=== PATIENT | male | born 1955 | race Caucasian/White ===

== ENCOUNTER → 2016-08-21 | Outpatient (CLI) | payer OTHER ==
[~2016-08-21] MED LIST: ALLERGY INJECTIONS; AMMONIUM LACTATE; ANDROGEL1.25 GM TD; BENADRYL PO; BENTYL20 M1 PO; CALCIUM CARBONA1 TAB PO; CARDIZEM60 MG PO; CARVEDILOL25 MG PO; CIALIS PO; CLOTRIMAZOLE; CLOTRIMAZOLE15 GM; COREG PO; COREG12.5 MG PO; COUMADIN PO; COUMADIN2.5 MG PO; COUMADIN5 MG PO; COUMADIN7.5 MG PO; DITROPAN5 MG PO; DURAGESIC1 EAC1 TD; FENTANYL1 PATCH .1 TD; FISH OIL 1,0001 EAC1 PO; FLAGYL PO; FLEXERIL10 MG PO; FLONASE16 GM; GABAPENTIN600 MG PO; GABAPENTIN800 MG PO; GLUCOSAMINE CHO PO; GLUCOSAMINE PO; HYDROCODON-ACE1 EAC5 PO; HYZAAR 50-12.51 TA1 PO; HYZAAR 50-12.51 TAB PO; LAC-HYDRIN 5113 GM; LASIX PO; LODINE PO; LOVENOX SUBQ; LOVENOX100 MG/ML INJ; LOVENOX120 MG/0.8 INJ; MODAFINIL200 MG PO; MULTIPLE VITAMI1 T11 PO; NASACORT10.8 ML NS; NASALCORT; NEXIUM PO; NIASPAN PO; NIASPAN1000 MG PO; OMEGA 3 FISH OI1 CAP; OMEPRAZOLE20 M1 PO; PATIENT'S PHARMACY; PRILOSEC20 MG PO; PRILOSEC40 MG PO; ROCEPHIN IV; SIMVASTATIN40 MG PO; TEMAZEPAM PO; VANCOMYCIN IV; VYTORIN 10/80 T1 TAB PO; XANAX0.5 M1 PO; ZOFRAN PO; ZOLOFT50 MG PO; ZYRTEC10 M2 PO; [UNRECOGNIZED DRUG - OTHER] IM; [UNRECOGNIZED DRUG - OTHER] PO; [UNRECOGNIZED DRUG - SUPPLY] IM
--- NOTE | ~2016-08-21 | CT5 ---
[facility] A Service of [facility] RADIOLOGY TEXT RESULTS PATIENT: CARLOS MAJOR LOCATION: [facility] : 53 UNIT #: [id number] AGE: [address]: Dakota Hernandez MD SEX: M ORDER DR: [id number] [place] [id number] [facility]. [place], [place] [address] [id number] O MR#: [id number] [facility] #: [id number] NAME: CARLOS MAJOR : 1955 SEX: M STUDY DATE/TIME: 08/21/2016 10:21 UNIT: [facility] ROOM: STUDY DESCRIPTION: CT Abdomen W Cont Attending Physician: Dakota Hernandez M.D. Referring Physician: Dakota Hernandez M.D. Ordering Physician: Dakota Hernandez M.D. Primary Care Physician: Nik Rosario M.D. MEDICAL IMAGING REPORT This report is preliminary unless electronic signature is present INDICATIONS Malignant carcinoid tumor of the stomach. Restaging. Observation for metastatic disease. TECHNIQUE CT of the abdomen with oral and IV contrast (100 mL Isovue-370 IV contrast). Coronal and sagittal reconstructions were obtained. This CT exam was performed with one or more of the following radiation dose reduction techniques: automatic exposure control, adjustment of mA and/or kV according to patient size, and iterative reconstruction. COMPARISON Concurrent CT chest dated 08/21/[address] abdomen dated 11/29/2015. FINDINGS The liver is enlarged measuring 22.0-23.0 cm in length. This is unchanged. There is some mild stranding around the gallbladder fossa and periportal region, however no discretely enlarged lymph nodes are identified. There are a few subcentimeter lymph nodes in the gastrohepatic space ligament, however these are subcentimeter in size. A few periportal lymph nodes are also a subcentimeter in size. Pancreas is atrophic. The spleen and adrenal glands are unchanged. 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 The bowel is not dilated. No enlarged retroperitoneal lymph nodes. The appendix is borderline thickened at 0.7 cm, however there is no significant periappendiceal inflammation. There is a small lipoma in the left lateral aspect of the external oblique muscle. [facility] [place] A Service of [facility] RADIOLOGY TEXT RESULTS PATIENT: CARLOS MAJOR LOCATION: [facility] : 53 UNIT #: [id number] AGE: [address]: Dakota Hernandez MD SEX: M ORDER DR: No acute osseous abnormalities. IMPRESSION 1. No evidence of disease progression. 2. There are a few small periportal and gastrohepatic lymph nodes that are not pathologically enlarged, however, are more prominent than the prior study. I would recommend these be closely followed. 3. Stable hepatomegaly. Dictated by... Stuart Dee M.D. THIS IS AN ELECTRONICALLY VERIFIED REPORT Stuart Dee M.D. at 08/22/2016 2:04 PM OTYA/inder TD: 08/21/2016 18:08 JOB #: [id number] MEDICAL IMAGING REPORT COPY
--- NOTE | ~2016-08-21 | CT55 ---
[facility] A Service of [facility] RADIOLOGY TEXT RESULTS PATIENT: CARLOS MAJOR LOCATION: [facility] : 53 UNIT #: [id number] AGE: [address]: Dakota Hernandez MD SEX: M ORDER DR: [id number] [facility] [address] [place], [place] [address] [id number] O MR#: [id number] [facility] #: [id number] NAME: CARLOS MAJOR : 1955 SEX: M STUDY DATE/TIME: 08/21/2016 10:21 UNIT: [facility] ROOM: STUDY DESCRIPTION: CT Chest W Con Attending Physician: Dakota Hernandez M.D. Referring Physician: Dakota Hernandez M.D. Ordering Physician: Dakota Hernandez M.D. Primary Care Physician: Nik Rosario M.D. MEDICAL IMAGING REPORT This report is preliminary unless electronic signature is present INDICATION Malignant carcinoid tumor of the stomach. Restaging. Observation for metastatic disease. Generalized abdominal pain for [address] of the thorax utilizing 100 mL Isovue-370 IV contrast. Coronal and sagittal reconstructions were obtained. This CT exam was performed with one or more of the following radiation dose reduction techniques: automatic exposure control, adjustment of mA and/or kV according to patient size, and iterative reconstruction. COMPARISON Concurrent CT abdomen dated 08/21/[address] chest and abdomen dated 11/29/2015. FINDINGS There are no pathologically enlarged mediastinal or hilar lymph nodes. There are a few mediastinal lymph nodes that are slightly larger than on the prior study, however, remain subcentimeter in size. The mid ascending thoracic aorta is dilated measuring 4.8 cm, unchanged. There is no pericardial or pleural effusion. No new pulmonary opacities. There are a few small pulmonary nodules that are unchanged from the prior study of 11/29/2015. No new pulmonary opacities. Central airways are patent. Please refer to separately dictated report for details on the abdomen. No suspicious osseous abnormalities. IMPRESSION 1. No evidence of disease progression. 2. No pathologically enlarged mediastinal lymph nodes are identified, however there are a few small subcentimeter nodes that are slightly STS. [facility] A Service of [facility] & [facility] RADIOLOGY TEXT RESULTS PATIENT: CARLOS MAJOR LOCATION: [facility] : 53 UNIT #: [id number] AGE: [address]: Dakota Hernandez MD SEX: M ORDER DR: larger than on the prior study and these should be followed. 3. Small pulmonary nodules are unchanged from prior study. Dictated by... Stuart Dee M.D. THIS IS AN ELECTRONICALLY VERIFIED REPORT Stuart Dee M.D. at 08/22/2016 8:19 AM Fermín TD: 08/21/2016 18:03 JOB #: [id number] MEDICAL IMAGING REPORT COPY
[2016-08-21 09:55] LABS: POC - CREATININE 0.91 mg/dL (0.64-1.27); POC - GFR >60.0 mL/min (>60)
== END | disposition home or self-care (01) ==
LOC: CCAT 08:34
PROVIDERS: Internal Medicine Medical Oncology
DX: C7A.092 Malignant carcinoid tumor of the stomach (principal); R91.8 Other nonspecific abnormal finding of lung field; R16.0 Hepatomegaly, not elsewhere classified
CPT/HCPCS: 71260; 74160; 82565; Q9967

== ENCOUNTER → 2017-01-21 | Outpatient (CLI) | payer OTHER ==
[2017-01-21 12:09] LABS: INR 1.6; PROTHROMBIN TIME (PATIENT) 17.6 SECONDS (10.0-11.7)
== END | disposition home or self-care (01) ==
LOC: CLAB 11:22
PROVIDERS: Internal Medicine Cardiovascular Disease
DX: Z51.81 Encounter for therapeutic drug level monitoring (principal); Z79.01 Long term (current) use of anticoagulants
CPT/HCPCS: 36415; 85610